=== PATIENT | male | born 1995 | race Caucasian/White ===

== ENCOUNTER 2020-10-13 23:54 | Emergency (ER) | payer OTHER ==
[~2020-10-13] VITALS: Ht 175.3 cm; Wt 78.5 kg
[2020-10-14 00:14] VITALS: Ht 175.3 cm; Wt 78.5 kg
[2020-10-14 01:59] VITALS: BP 126/79
== END 2020-10-14 02:28 | disposition home or self-care (01) ==
LOC: ED 23:54
DX: S90.211A Contusion of right great toe with damage to nail, initial encounter (principal); W23.0XXA Caught, crushed, jammed, or pinched between moving objects, initial encounter; Y93.89 Activity, other specified; Y92.89 Other specified places as the place of occurrence of the external cause; Y99.0 Civilian activity done for income or pay